=== PATIENT | male | born 1935 | race Caucasian/White ===

== ENCOUNTER 2021-01-28 11:36 | Outpatient (CLI) | payer MEDICARE, OTHER | END 2021-01-28 11:37 | disposition home or self-care (01) | LOC: CSHWCC 11:36 | PROVIDERS: ATTEND Nurse Practitioner Family | DX: E11.622 Type 2 diabetes mellitus with other skin ulcer (principal); D04.4 Carcinoma in situ of skin of scalp and neck; I70.223 Atherosclerosis of native arteries of extremities with rest pain, bilateral legs; I87.2 Venous insufficiency (chronic) (peripheral); L08.89 Other specified local infections of the skin and subcutaneous tissue; L59.9 Disorder of the skin and subcutaneous tissue related to radiation, unspecified; L98.494 Non-pressure chronic ulcer of skin of other sites with necrosis of bone; Z85.828 Personal history of other malignant neoplasm of skin | CPT/HCPCS: 99213; G0463 ==

== ENCOUNTER 2021-02-18 09:44 | Outpatient (CLI) | payer MEDICARE, OTHER | END 2021-02-18 09:45 | disposition home or self-care (01) | LOC: CSHWCC 09:44 | PROVIDERS: ATTEND Nurse Practitioner Family | DX: S01.401D Unspecified open wound of right cheek and temporomandibular area, subsequent encounter (principal); E11.622 Type 2 diabetes mellitus with other skin ulcer; L98.494 Non-pressure chronic ulcer of skin of other sites with necrosis of bone; D04.4 Carcinoma in situ of skin of scalp and neck; I70.223 Atherosclerosis of native arteries of extremities with rest pain, bilateral legs; I87.2 Venous insufficiency (chronic) (peripheral); L08.89 Other specified local infections of the skin and subcutaneous tissue; L59.9 Disorder of the skin and subcutaneous tissue related to radiation, unspecified; Z85.828 Personal history of other malignant neoplasm of skin | CPT/HCPCS: 11044 ==

== ENCOUNTER 2021-03-11 11:47 | Outpatient (CLI) | payer MEDICARE, OTHER | END 2021-03-11 11:48 | disposition home or self-care (01) | LOC: CSHWCC 11:47 | PROVIDERS: ATTEND Nurse Practitioner Family | DX: I87.2 Venous insufficiency (chronic) (peripheral) (principal); E11.622 Type 2 diabetes mellitus with other skin ulcer; L98.494 Non-pressure chronic ulcer of skin of other sites with necrosis of bone; D04.4 Carcinoma in situ of skin of scalp and neck; I70.223 Atherosclerosis of native arteries of extremities with rest pain, bilateral legs; L08.89 Other specified local infections of the skin and subcutaneous tissue; L59.9 Disorder of the skin and subcutaneous tissue related to radiation, unspecified; Z85.828 Personal history of other malignant neoplasm of skin | CPT/HCPCS: 99213; G0463 ==

== ENCOUNTER 2021-06-24 09:29 | Outpatient (CLI) | payer MEDICARE, OTHER | END 2021-06-24 09:30 | disposition home or self-care (01) | LOC: CSHWCC 09:29 | PROVIDERS: ATTEND Nurse Practitioner Family | DX: E11.622 Type 2 diabetes mellitus with other skin ulcer (principal); L98.494 Non-pressure chronic ulcer of skin of other sites with necrosis of bone; I70.223 Atherosclerosis of native arteries of extremities with rest pain, bilateral legs; I87.2 Venous insufficiency (chronic) (peripheral); L08.89 Other specified local infections of the skin and subcutaneous tissue; L59.9 Disorder of the skin and subcutaneous tissue related to radiation, unspecified; D04.4 Carcinoma in situ of skin of scalp and neck; Z85.828 Personal history of other malignant neoplasm of skin | CPT/HCPCS: 99213; G0463 ==

== ENCOUNTER 2021-09-16 09:20 | Outpatient (CLI) | payer MEDICARE, OTHER | END 2021-09-16 09:21 | disposition home or self-care (01) | LOC: CSHWCC 09:20 | PROVIDERS: ATTEND Nurse Practitioner Family | DX: L98.494 Non-pressure chronic ulcer of skin of other sites with necrosis of bone (principal); I87.2 Venous insufficiency (chronic) (peripheral); E11.622 Type 2 diabetes mellitus with other skin ulcer; L98.499 Non-pressure chronic ulcer of skin of other sites with unspecified severity; D04.4 Carcinoma in situ of skin of scalp and neck; I70.223 Atherosclerosis of native arteries of extremities with rest pain, bilateral legs; L08.89 Other specified local infections of the skin and subcutaneous tissue; L59.9 Disorder of the skin and subcutaneous tissue related to radiation, unspecified; Z85.828 Personal history of other malignant neoplasm of skin | CPT/HCPCS: 97139; G0463; 99213 ==

== ENCOUNTER 2021-10-14 10:27 | Outpatient (CLI) | payer MEDICARE, OTHER | END 2021-10-14 10:28 | disposition home or self-care (01) | LOC: CSHWCC 10:27 | PROVIDERS: ATTEND Nurse Practitioner Family | DX: E11.622 Type 2 diabetes mellitus with other skin ulcer (principal); D04.4 Carcinoma in situ of skin of scalp and neck; I70.223 Atherosclerosis of native arteries of extremities with rest pain, bilateral legs; I87.2 Venous insufficiency (chronic) (peripheral); L08.89 Other specified local infections of the skin and subcutaneous tissue; L59.9 Disorder of the skin and subcutaneous tissue related to radiation, unspecified; L98.494 Non-pressure chronic ulcer of skin of other sites with necrosis of bone; Z85.828 Personal history of other malignant neoplasm of skin ==

== ENCOUNTER 2021-11-11 10:13 | Outpatient (CLI) | payer MEDICARE, OTHER | END 2021-11-11 10:14 | disposition home or self-care (01) | LOC: CSHWCC 10:13 | PROVIDERS: ATTEND Nurse Practitioner Family | DX: E11.622 Type 2 diabetes mellitus with other skin ulcer (principal); L98.494 Non-pressure chronic ulcer of skin of other sites with necrosis of bone; I70.223 Atherosclerosis of native arteries of extremities with rest pain, bilateral legs; I87.2 Venous insufficiency (chronic) (peripheral); D04.4 Carcinoma in situ of skin of scalp and neck; L08.89 Other specified local infections of the skin and subcutaneous tissue; L59.9 Disorder of the skin and subcutaneous tissue related to radiation, unspecified; Z85.828 Personal history of other malignant neoplasm of skin ==

== ENCOUNTER 2022-03-03 09:42 | Outpatient (CLI) | payer MEDICARE, OTHER | END 2022-03-03 09:43 | disposition home or self-care (01) | LOC: CSHWCC 09:42 | PROVIDERS: ATTEND Nurse Practitioner Family | DX: L98.494 Non-pressure chronic ulcer of skin of other sites with necrosis of bone (principal) | CPT/HCPCS: 97139; G0463; 99212 ==

== ENCOUNTER 2022-04-12 10:32 | Outpatient (CLI) | payer MEDICARE, OTHER | END 2022-04-12 10:33 | disposition home or self-care (01) | LOC: CSHWCC 10:32 | PROVIDERS: ATTEND Nurse Practitioner Family | DX: L89.894 Pressure ulcer of other site, stage 4 (principal) | CPT/HCPCS: 97139; G0463; 99212 ==

== ENCOUNTER 2022-08-12 12:53 | Outpatient (CLI) | payer MEDICARE, OTHER | END 2022-08-12 12:54 | disposition home or self-care (01) | LOC: CSHWCC 12:53 | PROVIDERS: ATTEND Preventive Medicine Undersea and Hyperbaric Medicine | DX: L98.494 Non-pressure chronic ulcer of skin of other sites with necrosis of bone (principal) | CPT/HCPCS: 97139; G0463; 99212 ==

== ENCOUNTER 2023-12-06 15:40 | Outpatient (CLI) | payer MEDICARE | END 2023-12-06 15:41 | disposition home or self-care (01) | LOC: CSHWCC 15:40 | PROVIDERS: ATTEND Physician Assistant | DX: L98.491 Non-pressure chronic ulcer of skin of other sites limited to breakdown of skin (principal) | CPT/HCPCS: 97597; G0463; 99213 ==

== ENCOUNTER 2023-12-20 10:57 | Outpatient (CLI) | payer MEDICARE | END 2023-12-20 10:58 | disposition home or self-care (01) | LOC: CSHWCC 10:57 | PROVIDERS: ATTEND Nurse Practitioner Family | DX: L98.491 Non-pressure chronic ulcer of skin of other sites limited to breakdown of skin (principal) | CPT/HCPCS: 97597 ==

== ENCOUNTER 2023-12-27 14:45 | Outpatient (CLI) | payer MEDICARE | END 2023-12-27 14:46 | disposition home or self-care (01) | LOC: CSHWCC 14:45 | PROVIDERS: ATTEND Nurse Practitioner Family | DX: L98.491 Non-pressure chronic ulcer of skin of other sites limited to breakdown of skin (principal) | CPT/HCPCS: 11042 ==

== ENCOUNTER 2024-01-04 11:00 | Outpatient (CLI) | payer MEDICARE | END 2024-01-04 11:01 | disposition home or self-care (01) | LOC: CSHWCC 11:00 | PROVIDERS: ATTEND Nurse Practitioner Family | DX: L98.491 Non-pressure chronic ulcer of skin of other sites limited to breakdown of skin (principal); L59.8 Other specified disorders of the skin and subcutaneous tissue related to radiation | CPT/HCPCS: 11042 ==

== ENCOUNTER 2024-02-01 17:14 | Outpatient (CLI) | payer MEDICARE | END 2024-02-01 17:15 | disposition home or self-care (01) | LOC: CSHWCC 17:14 | PROVIDERS: ATTEND Nurse Practitioner Family | DX: L98.491 Non-pressure chronic ulcer of skin of other sites limited to breakdown of skin (principal); L59.8 Other specified disorders of the skin and subcutaneous tissue related to radiation | CPT/HCPCS: 97597 ==

== ENCOUNTER 2024-03-14 13:34 | Outpatient (CLI) | payer MEDICARE | END 2024-03-14 13:35 | disposition home or self-care (01) | LOC: CSHWCC 13:34 | PROVIDERS: ATTEND Nurse Practitioner Family | DX: L98.491 Non-pressure chronic ulcer of skin of other sites limited to breakdown of skin (principal); L59.8 Other specified disorders of the skin and subcutaneous tissue related to radiation ==

== ENCOUNTER 2024-06-27 13:39 | Outpatient (CLI) | payer MEDICARE | END 2024-06-27 13:40 | disposition home or self-care (01) | LOC: CSHWCC 13:39 | PROVIDERS: ATTEND Nurse Practitioner Family | DX: L89.620 Pressure ulcer of left heel, unstageable (principal); I70.235 Atherosclerosis of native arteries of right leg with ulceration of other part of foot; I70.245 Atherosclerosis of native arteries of left leg with ulceration of other part of foot; L97.511 Non-pressure chronic ulcer of other part of right foot limited to breakdown of skin; L97.521 Non-pressure chronic ulcer of other part of left foot limited to breakdown of skin | CPT/HCPCS: 99215; G0463 ==